=== PATIENT | male | born 1965 ===

== ENCOUNTER 2020-07-23 22:24 | Emergency (ER) | payer BC ==
[2020-07-23] MEDS ORDERED: Sodium Chloride 0.9% 2.5 ML Syringe FLUSH PRN (22:35)
[2020-07-23] MEDS ORDERED: Sodium Chloride 0.9% 10 ML Syringe FLUSH PRN (22:35)
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
[2020-07-23 23:00] LABS: BLOOD UREA NITROGEN,BUN 12 mg/dL (7.0-18.0); CARBON DIOXIDE,CO2 24.8 mmol/L (21.0-32.0); CHLORIDE,CL 101 mmol/L (98-107); GLUCOSE RANDOM 136 mg/dL (74-106); POTASSIUM,K 3.1 mmol/L (3.5-5.1); SODIUM,NA 140 mmol/L (136-148)
[2020-07-23] MEDS: Lidocaine 1% with EPINEPHrine 1:100,000 20 ML MDV INJECT ONE (23:10)
[2020-07-23] MEDS ORDERED: Ondansetron 4 MG/2 ML SDV IVPUSH ONE (23:11)
[2020-07-23] MEDS ORDERED: fentaNYL 50 MCG/ML SDV IVPUSH ONE (23:11)
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
[2020-07-23] MEDS ORDERED: cefTRIAXone 1 GM in Premix Bag 1 BAG IV ONE (23:36)
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
--- NOTE | 2020-07-24 00:02 | CR ---
Indication: Fall Technique: One view Comparison: None Findings: Bones: Alignment is normal. No fractures or bone lesions. Joint spaces: Unremarkable. Soft tissues: Unremarkable. Dictated by Roney Hamlin MD @ Jul 24 2020 12:00AM Signed by Dr. Roney Hamlin @ Jul 24 2020 12:01AM
[2020-07-24] MEDS: Lidocaine 1% with EPINEPHrine 1:100,000 20 ML MDV INJECT ONE (00:04)
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
== END 2020-07-24 00:05 ==
LOC: MW.ED 22:32 → MERGE 22:32 → MW.ED 07-24 00:05
DX: S02.0XXA Fracture of vault of skull, initial encounter for closed fracture (principal); S02.19XA Other fracture of base of skull, initial encounter for closed fracture; S06.5X9A Traumatic subdural hemorrhage with loss of consciousness of unspecified duration, initial encounter; S06.6X9A Traumatic subarachnoid hemorrhage with loss of consciousness of unspecified duration, initial encounter; Z20.822 Contact with and (suspected) exposure to COVID-19; W19.XXXA Unspecified fall, initial encounter; Y92.481 Parking lot as the place of occurrence of the external cause
CPT/HCPCS: 36415; 70450; 71045; 72125; 72170; 80053; 80179; 85025; 87635; 93005; 96365; 96375; 99285; G0390; J0696; J2405; J3010; U0002